=== PATIENT | female | born 1990 | race African-American/Black ===

== ENCOUNTER 2018-07-29 02:49 | Outpatient (CLI) | payer SELFPAY ==
[~2018-07-29] VITALS: Ht 160 cm; Wt 77.3 kg
[2018-07-29 03:30] VITALS: BP 133/86; PULSE 93; TEMP 98.6
== END 2018-07-29 04:45 | disposition home or self-care (01) ==
LOC: LDRO 02:49
DX: O62.9 Abnormality of forces of labor, unspecified (principal); Z3A.39 39 weeks gestation of pregnancy